=== PATIENT | male | born 2000 | race Caucasian/White ===

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

== ENCOUNTER → 2023-11-30 | Emergency (ER) | payer OTHER ==
[~2023-11-30] VITALS: Ht 165.1 cm; Wt 85.3 kg
[~2023-11-30] MED LIST changes: +BACK & BODY PA1 EACH PO
== END ==
LOC: ED 12:59
DX: R04.0 Epistaxis (principal); Z87.891 Personal history of nicotine dependence